=== PATIENT | female | born 1970 | race Two or more races ===

== ENCOUNTER 2020-02-23 10:25 | Emergency (ER) | payer SELFPAY ==
[2020-02-23] MEDS ORDERED: LORazepam 2 MG/ML SDV IVPUSH ONE (10:55)
[2020-02-23] MEDS ORDERED: Sodium Chloride 0.9% 10 ML Syringe FLUSH PRN (10:55)
[2020-02-23] MEDS ORDERED: Alum Hydrox/Mag Hydrox/Simeth 30 ML, Lidocaine 2% 15 ML PO ONE ×2 (11:09)
--- NOTE | 2020-02-23 11:11 | EDM.PDOC ---
ED HPI GENERAL MEDICAL PROBLEM - General Chief Complaint: Chest Pain Stated Complaint: CHEST PAIN Time Seen by Provider: 02/23/20 10:41 Source of Information: Reports: Patient, RN Notes Reviewed - History of Present Illness INITIAL COMMENTS - FREE TEXT/NARRATIVE: 49 yr old female with onset of ant. chest discomfort a short time ago. Mid chest ache and 'spasm" type feeling, now better, discomfort almost gone. She did get anxious, short of breath, breathing hard and fast, very anxious at time of exam. No recent cough, fever or chills. Hx Htn. Does not smoke. 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: Musculoskeletal History: Reports: Arthritis Psychiatric History: Reports: Depression Endocrine/Metabolic History: Reports: Diabetes, Type II - Past Surgical History GI Surgical History: Reports: Cholecystectomy Female Surgical History: Reports: Hysterectomy Social & Family History - Tobacco Use Tobacco Use Status *Q: Never Tobacco User Second Hand Smoke Exposure: No - Caffeine Use Caffeine Use: Reports: Coffee, Soda - Recreational Drug Use Recreational Drug Use: No ED ROS GENERAL - Review of Systems Review Of Systems: See Below Constitutional: Denies: Fever, Chills HEENT: Denies: Throat Pain Respiratory: Reports: Shortness of Breath (now better). Denies: Pleuritic Chest Pain, Cough Cardiovascular: Reports: Chest Pain (almost gone at time of exam) GI/Abdominal: Denies: Abdominal Pain, Nausea, Vomiting Musculoskeletal: Denies: Shoulder Pain, Arm Pain, Back Pain Skin: Reports: No Symptoms Neurological: Reports: Numbness (both hands, now better) ED EXAM, GENERAL - Physical Exam Exam: See Below General Appearance: Alert, Anxious Eye Exam: Bilateral Eye: PERRL Head: Atraumatic Neck: Supple Respiratory/Chest: Respiratory Distress (moderate tachypnea at time of exam) Cardiovascular: Tachycardia GI/Abdominal: Soft, Non-Tender. No: Guarding Extremities: Normal Inspection. No: Pedal Edema, Leg Pain, Increased Warmth, Redness Neurological: Alert, Oriented, No Motor/Sensory Deficits Skin Exam: Warm, Dry, Normal Color #1 Interpretation EKG Date: 02/23/20 Rhythm: Other (sinus tach) Rate (Beats/Min): 102 Harrison: Normal P-Wave: Present QRS: Normal ST-T: Normal Course - Vital Signs Last Recorded V/S: Last Vital Signs Temp 97.8 F 02/23/20 10:33 Pulse 102 H 02/23/20 10:33 Resp 17 02/23/20 12:50 BP 123/70 02/23/20 12:50 Pulse Ox 95 02/23/20 12:50 - Orders/Labs/Meds Orders: Active Orders 24 hr Category Date Time Status Sodium Chloride 0.9% [Saline Flush] Med 02/23/20 10:55 Active 10 ml FLUSH ASDIRECTED PRN Peripheral IV Insertion Adult [OM.PC] Stat Oth 02/23/20 10:55 Ordered EKG 12 Lead [EK] Stat Ther 02/23/20 10:33 Ordered Medication Orders Sodium Chloride (Saline Flush) 10 ml FLUSH ASDIRECTED PRN PRN Reason: Keep Vein Open Last Admin: 02/23/20 11:14 Dose: 10 ml Documented by: YAKOV Labs: Laboratory Tests 02/23/20 Range/Units 10:38 Troponin I < 0.017 (0.00-0.056) ng/mL Meds: Medications Generic Name Dose Route Start Last Admin Trade Name Freq PRN Reason Stop Dose Admin Sodium Chloride 10 ml 02/23/20 10:55 02/23/20 11:14 Saline Flush FLUSH 10 ml ASDIRECTED PRN Administration Keep Vein Open Discontinued Medications Generic Name Dose Route Start Last Admin Trade Name Freq PRN Reason Stop Dose Admin Al Hydroxide/Mg Hydroxide 30 0 ml 02/23/20 11:09 02/23/20 11:14 ml/ Lidocaine HCl 15 ml PO 02/23/20 11:10 45 ml ONETIME ONE Administration Lorazepam 0.5 mg 02/23/20 10:55 02/23/20 11:14 Ativan IVPUSH 02/23/20 10:56 0.5 mg ONETIME ONE Administration - Re-Assessments/Exams Free Text/Narrative Re-Assessment/Exam: 02/23/20 13:09 CXR nl, trop nl. EKG no acute changes. We did give ativan 0.5 mg IV and with that she did relax, chest discomfort continued to go away. Discharge instr. as documented. Departure - Departure Time of Disposition: 12:32 Disposition: Home, Self-Care 01 Condition: Fair Clinical Impression: Atypical chest pain GERD (gastroesophageal reflux disease) Qualifiers: Esophagitis presence: without esophagitis Qualified Code(s): K21.9 - Gastro- esophageal reflux disease without esophagitis Instructions: Heartburn Referrals: Ivette Elliott PA-C [Primary Care Provider] - Forms: ED Department Discharge Additional Instructions: Take your stomach antacid medication as previously prescribed. Avoid spicy food for 2 days. Maalox or Mylanta liquid antacid, 2 tablespoons q 4 to 6 hr if needed for further chest discomfort. You may also alternate ice and heat as needed, take tylenol q 6 to 8 hr if needed. Return to ED as needed if symptoms worsening in any way. Sepsis Event Note (ED) - Evaluation Sepsis Screening Result: No Definite Risk - Focused Exam Vital Signs: Vital Signs Temp Pulse Resp BP Pulse Ox 02/23/20 12:50 17 123/70 95 02/23/20 10:33 97.8 F 102 H 20 160/91 H 98 - My Orders Last 24 Hours: My Active Orders 02/23/20 10:33 EKG 12 Lead [EK] Stat 02/23/20 10:55 Sodium Chloride 0.9% [Saline Flush] 10 ml FLUSH ASDIRECTED PRN Peripheral IV Insertion Adult [OM.PC] Stat - Assessment/Plan Last 24 Hours: My Active Orders 02/23/20 10:33 EKG 12 Lead [EK] Stat 02/23/20 10:55 Sodium Chloride 0.9% [Saline Flush] 10 ml FLUSH ASDIRECTED PRN Peripheral IV Insertion Adult [OM.PC] Stat
--- NOTE | 2020-02-23 11:33 | CR ---
Chest: Portable view of the chest was obtained. Comparison: No prior chest imaging. Heart size is within normal limits. Tortuous thoracic aorta is seen. Lungs are clear with no acute parenchymal change. Bony structures are grossly intact. Impression: 1. Nothing acute is seen on portable chest x-ray. Diagnostic code #1
== END 2020-02-23 12:50 | disposition home or self-care (01) ==
LOC: JD.ED 10:25
DX: K21.9 Gastro-esophageal reflux disease without esophagitis (principal); R00.0 Tachycardia, unspecified; E11.9 Type 2 diabetes mellitus without complications; Z88.2 Allergy status to sulfonamides
CPT/HCPCS: 36415; 71045; 84484; 93005; 96374; 99285; A9270; J2060; 93010; 99284

== ENCOUNTER 2020-09-26 09:02 | Day surgery (SDC) | payer OTHER ==
--- NOTE | 2020-09-24 11:39 | PCM.PREANE ---
Preanesthetic Assessment - Procedure Proposed Procedure: Diagnostic EGD and Diagnostic Colonoscopy - Anesthesia/Transfusion/Family Hx Anesthesia History: Prior Anesthesia Without Reaction Family History of Anesthesia Reaction: No Transfusion History: No Prior Transfusion(s) Intubation History: Unknown - Review of Systems General: No Symptoms Pulmonary: No Symptoms (Morbidly obese/snoring) Cardiovascular: No Symptoms (Elevated lipids), Dyspnea on Exertion, Lightheadedness (from migraines) Gastrointestinal: No Symptoms (patient c/o chronic pain: celiac disease/ elevated A1C/GERD), Diarrhea Neurological: No Symptoms, Headache (daily-migraines/07/22) Other: Reports: Easy Bruising, Diabetes (AM blood sugar= 95 @0800 elevated A1C), Sinus Problem (Allergic rhinitis), Neck Pain, Depression - Physical Assessment NPO Status Date: 09/25/20 NPO Status Time: 04:00 Vital Signs: HR: 78 Sat: 94% Temp: 98.3 Resp: 17 B/P: 124/80 Height: 1.63 m Weight: 86 kg ASA Class: 3 Mental Status: Alert & Oriented x3 Airway Class: Mallampati = 2 Dentition: Reports: Normal Dentition, Caries Thyro-Mental Finger Breadths: 3 Mouth Opening Finger Breadths: 3 ROM/Head Extension: Full Lungs: Clear to Auscultation, Normal Respiratory Effort Cardiovascular: Regular Rate, Regular Rhythm, No Murmurs - Lab Values: All labs reviewed and noted and within acceptable ranges to proceed with scheduled procedure. - Imaging/EKG Impressions: EKG: sinus tachycardia rate= 102, left anterior fascicular block - Allergies Allergies/Adverse Reactions: Allergies Allergy/AdvReac Type Severity Reaction Status Date / Time pollen extracts Allergy Cough Verified 09/25/20 11:45 Sulfa (Sulfonamide Allergy Blisters Verified 09/25/20 11:45 Antibiotics) - Anesthesia Plan Pre-Op Medication Ordered: None, Other (albuterol nebulizer preoperatively) - Acknowledgements Anesthesia Type Planned: MAC Pt an Appropriate Candidate for the Planned Anesthesia: Yes Alternatives and Risks of Anesthesia Discussed w Pt/Guardian: Yes Pt/Guardian Understands and Agrees with Anesthesia Plan: Yes PreAnesthesia Questionnaire Cardiovascular History: Reports: High Cholesterol, Other (See Below) Other Cardiovascular History: inflammation to heart Gastrointestinal History: Reports: GERD 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: Musculoskeletal History: Reports: Arthritis Psychiatric History: Reports: Depression Endocrine/Metabolic History: Reports: Diabetes, Type II - Past Surgical History GI Surgical History: Reports: Cholecystectomy Female Surgical History: Reports: Hysterectomy - HOME MEDS Home Medications: Home Meds Acetaminophen [Acetaminophen 8 Hour] 650 mg PO QID PRN 09/25/20 [History] Diclofenac Sodium [Voltaren 1% Gel] 1 dose TOP QID PRN 09/25/20 [History] Docusate Sodium [Stool Softener] 100 mg PO BID PRN 09/25/20 [History] FLUoxetine HCl [Prozac] 20 mg PO DAILY 09/25/20 [History] Naproxen 500 mg PO Q12H PRN 09/25/20 [History] Olopatadine HCl [Pataday Once Daily Relief] 1 dose EYEBOTH BID 09/25/20 [History] Omeprazole 40 mg PO DAILY 09/25/20 [History] Pantoprazole Sodium [Protonix] 40 mg PO DAILY 09/25/20 [History] Phenylephrine HCl/Viola Butter [Preparation H Suppository] 1 dose RECTAL ASDIRECTED PRN 09/25/20 [History] Simvastatin [Zocor] 20 mg PO BEDTIME 09/25/20 [History] Sucralfate [Carafate] 1 g PO QID 09/25/20 [History] Topiramate 25 mg PO BID 09/25/20 [History] ZOLMitriptan [Zolmitriptan] 5 mg PO ASDIRECTED PRN 09/25/20 [History] metFORMIN [Glucophage] 1,000 mg PO BID 09/25/20 [History] ondansetron HCL [Zofran] 4 mg PO Q8H PRN 09/25/20 [History] polyethylene glycoL 3350 [MiraLAX] 1 dose PO DAILY 09/25/20 [History] tiZANidine [Zanaflex] 2 - 4 mg PO Q8H PRN 09/25/20 [History] - CURRENT (IN HOUSE) MEDS Current Meds: Current Medications Lactated Ringer's (Ringers, Lactated) 1,000 mls @ 125 mls/hr IV ASDIRECTED NINA Stop: 09/26/20 23:00 Lidocaine/Sodium Bicarbonate (Lidocaine 1%/Sod Bicarbonate In Ns 8.4% 1 Ml Syringe) 0.25 ml IDERM ONETIME PRN PRN Reason: Prior to IV Start Stop: 09/26/20 18:00 Sodium Chloride (Sodium Chloride 0.9% 10 Ml Syringe) 10 ml FLUSH ASDIRECTED PRN PRN Reason: Keep Vein Open Stop: 09/26/20 18:00
[~2020-09-26 09:02] MED LIST: Lactated Ringers 1,000 ML IV SCH; Lactated Ringers 1,000 ML ONE; Lidocaine 1% 4 ML ONE; Lidocaine 1%/Sod Bicarbonate in NS 8.4% 1 ML Syringe IDERM PRN; Midazolam 1 MG/ML 2 ML SDV ONE; Propofol 200 MG/20 ML SDV ONE; Sodium Chloride 0.9% 10 ML Syringe FLUSH PRN; fentaNYL 100 MCG/2 ML SDV ONE
[2020-09-26] MEDS ORDERED: Albuterol 0.083% 2.5 MG/3 ML Neb Soln NEB ONE (09:32)
[2020-09-26] MEDS ORDERED: Ondansetron 4 MG/2 ML SDV IVPUSH PRN (10:40)
--- NOTE | 2020-09-26 11:09 | PCM.PRNOTE ---
- Free Text/Narrative Note: Date: 09/26/2020 Procedure: diagnostic esophagogastroduodenoscopy, screening colonoscopy History: no prior colon cancer screening, with chronic symptoms of diarrhea, bloating, abdominal pain. Treated medically for anal fissure several weeks ago. Endoscopist: Alexandro Isbell MD Findings: minor focal areas of gross inflammation in the antrum, with small hiatal hernia. No abnormalities noted on colonoscopy. Detailed Report: The patient was taken to the endoscopy suite and placed in left lateral decubitus position. Timeout was performed and monitored anesthesia care was initiated. A bite-block was placed. The endoscope was inserted into the mouth and advanced to the duodenum with ease. Duodenal mucosa appeared normal. Sample biopsies were obtained from the proximal duodenum with cold forceps. The scope was withdrawn into the stomach. There were a few petechial lesions in the antrum suggestive of nonspecific gastritis. Biopsies were obtained with cold forceps. No ulcers were noted and the remainder of the stomach appeared normal except for small sliding hiatal hernia noted on retroflexion of the scope. The scope was withdrawn into the distal esophagus. The distal esophagus appeared normal, and Z-line appeared normal. Sample biopsies of distal esophageal mucosa were obtained. Air was suctioned from the stomach prior to withdrawal of the scope. Next, attention was turned to colonoscopy. The anus appeared normal. Digital rectal exam was unremarkable, and no anal fissure was appreciated. The colonoscope was inserted and advanced all the way to the cecum. The appendiceal orifice and ileocecal junction were visualized. The prep was overall good, with some fluffy particulate matter and lots of bubbles throughout the colon. The scope was slowly withdrawn and mucosal surfaces carefully inspected. No polyps were identified. There was no appreciable diverticular disease. On retroflexion within the rectum, minor internal hemorrhoidal disease was noted as well as one hypertrophied anal papilla. Air was suctioned from the rectum prior to withdrawal of the scope. The patient tolerated the procedure well.
--- NOTE | 2020-09-26 11:13 | PCM48HPAN ---
Post Anesthesia Note - EVALUATION WITHIN 48HRS OF ANESTHETIC Vital Signs in Normal Range: Yes Patient Participated in Evaluation: Yes Respiratory Function Stable: Yes Airway Patent: Yes Cardiovascular Function Stable: Yes Hydration Status Stable: Yes Pain Control Satisfactory: Yes Nausea and Vomiting Control Satisfactory: Yes Mental Status Recovered: Yes Vital Signs: Last Vital Signs Temp 36.8 C 09/26/20 09:07 Pulse 78 09/26/20 09:07 Resp 17 09/26/20 09:07 BP 124/80 09/26/20 09:07 Pulse Ox 100 09/26/20 09:56
== END 2020-09-26 12:00 | disposition home or self-care (01) ==
LOC: JD.SDS 09:02
PROVIDERS: ATTEND Surgery
DX: K29.60 Other gastritis without bleeding (principal); K44.9 Diaphragmatic hernia without obstruction or gangrene; K52.9 Noninfective gastroenteritis and colitis, unspecified; K64.8 Other hemorrhoids; K62.89 Other specified diseases of anus and rectum
CPT/HCPCS: 43239; 45378; 94640; J2250; J2704; J3010; J7120; 00813